=== PATIENT | female | born 1935 | race Caucasian/White ===

== ENCOUNTER 2016-12-02 12:05 | Emergency (ER) | payer MEDICARE ==
[2016-12-02] MEDS ORDERED: Oxymetazoline HCl 0.05% ( 15 ML ) ONE (12:40)
== END 2016-12-02 13:00 | disposition home or self-care (01) ==
LOC: NAV ERS 12:05
DX: R04.0 Epistaxis (principal); I25.10 Atherosclerotic heart disease of native coronary artery without angina pectoris; E11.9 Type 2 diabetes mellitus without complications; K21.9 Gastro-esophageal reflux disease without esophagitis; I10 Essential (primary) hypertension; F32.9 Major depressive disorder, single episode, unspecified; Z87.891 Personal history of nicotine dependence; Z79.4 Long term (current) use of insulin; Z79.899 Other long term (current) drug therapy; Z79.82 Long term (current) use of aspirin
CPT/HCPCS: 99283

== ENCOUNTER 2017-02-02 08:31 | Emergency (ER) | payer MEDICARE ==
--- NOTE | 2017-02-02 09:32 | CT ---
CT OF THE HEAD WITHOUT CONTRAST: DATE: 02/02/17. COMPARISON: None. HISTORY: Fall, trauma, pain. TECHNIQUE: Serial axial CT imaging at 5 mm intervals from the vertex through the skull base without contrast. Coronal and sagittal reformatted imaging obtained. FINDINGS: The imaged paranasal sinuses and mastoid air cells are well aerated. 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 There is a focal area of mild scalp swelling in the sup raorbital region on the left. There is no displaced calvarial fracture, intracranial hemorrhage, mi dline shift, or mass effect. No displaced calvarial fracture is evident. IMPRESSION: Mild scalp swelling in the left supraorbital region. No associated fracture or intracranial hemorrh age. POS: ADRIANAH
--- NOTE | 2017-02-02 09:51 | CT ---
CT CERVICAL SPINE WITH CORONAL AND SAGITTAL REFORMATIONS: HISTORY: Fall, laceration in forehead and swelling of the left eyebrow. 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 No acute fracture or subluxation identified . POS: CAMMY
--- NOTE | 2017-02-02 10:17 | CT ---
CT FACIAL BONES WITH CORONAL AND SAGITTAL REFORMATIONS: History: Injury, fall, laceration on forehead and swelling at the left eyebrow. FINDINGS: There is soft tissue swelling in the left frontal scalp. No facial bone fracture is seen. No temporo mandibular dislocation is seen. The visualized paranasal sinuses and mastoid air cells are well aera iwona. Bilateral torus mandibularis are present. IMPRESSION: No CT evidence of facial bone fracture. POS: ADRIANA
== END 2017-02-02 11:00 | disposition home or self-care (01) ==
LOC: NAV ERS 08:31
DX: S01.21XA Laceration without foreign body of nose, initial encounter (principal); S00.03XA Contusion of scalp, initial encounter; I25.10 Atherosclerotic heart disease of native coronary artery without angina pectoris; E11.9 Type 2 diabetes mellitus without complications; K21.9 Gastro-esophageal reflux disease without esophagitis; I10 Essential (primary) hypertension; F32.9 Major depressive disorder, single episode, unspecified; Z87.891 Personal history of nicotine dependence; Z79.899 Other long term (current) drug therapy; Z79.4 Long term (current) use of insulin; Z79.82 Long term (current) use of aspirin; W01.0XXA Fall on same level from slipping, tripping and stumbling without subsequent striking against object, initial encounter
CPT/HCPCS: 12011; 70450; 70486; 72125

== ENCOUNTER 2017-08-12 10:57 | Emergency (ER) | payer MEDICARE | END 2017-08-12 11:47 | disposition home or self-care (01) | LOC: NAV ERS 10:57 | DX: K12.0 Recurrent oral aphthae (principal); I25.10 Atherosclerotic heart disease of native coronary artery without angina pectoris; E11.9 Type 2 diabetes mellitus without complications; K21.9 Gastro-esophageal reflux disease without esophagitis; I10 Essential (primary) hypertension; F32.9 Major depressive disorder, single episode, unspecified; Z87.891 Personal history of nicotine dependence; Z79.899 Other long term (current) drug therapy; Z79.82 Long term (current) use of aspirin | CPT/HCPCS: 99282 ==